=== PATIENT | female | born 1985 | race Caucasian/White ===

== ENCOUNTER → 2023-10-30 00:23 | Outpatient (CLI) | payer MEDICARE, MEDICAID, SELFPAY ==
--- NOTE | 2023-10-30 07:30 | DI.MAMMO_ITS ---
Exam(s) MG MAMMO SCREENING 60 MIN DUR EXAM: MG MAMMO SCREENING 60 MIN DUR CLINICAL HISTORY: breast cancer screening,z12.39 TECHNIQUE: Mammograms were interpreted according to the usual protocol including computer analysis w [employer] CAD system, tomosynthesis and C-view imaging. COMPARISON: None. Baseline examination. FINDINGS: The breasts are composed of heterogeneously dense fibroglandular densities, Breast Density category C . No suspicious masses or suspicious microcalcifications are seen. No skin thickening or abnormal axillary lymph nodes are seen. IMPRESSION: BI-RADS Category 1, Negative mammogram. Yearly screening mammography is recommended. Breast Density Category C, heterogeneously Dense. The mammogram demonstrates the patient's breast tissue is dense. Dense breast tissue is very common a nd is not abnormal but dense breast tissue can make it harder to find cancer on a mammogram. Also, de nse breast tissue may increase breast cancer risk. This information about the result of the mammogram report was provided to the patient to raise their awareness. Use this report when you speak with the patient about their risks for breast cancer, which includes their family history. At that time, you may recommend additional screening tests (Ultrasound or MRI) as they might be useful based on their r isk. A negative radiographic report should not delay biopsy if a dominant or clinically suspicious mass is present. Up to ten percent of cancers are not identified on mammography. A negative report may reinforce clinical impression. Adenosis and dense breasts may obscure an underlying neoplasm. False positive reports average 6 to 10%.
== END ==
PROVIDERS: PCP Nurse Practitioner Family; Visit Provider Nurse Practitioner Family
DX: Z12.31 Encounter for screening mammogram for malignant neoplasm of breast (principal)
CPT/HCPCS: 77063; 77067

== ENCOUNTER → 2023-10-30 01:36 | Outpatient (CLI) | payer MEDICARE, MEDICAID, SELFPAY ==
--- NOTE | 2023-10-30 07:30 | DI.US_ITS ---
Exam(s) US PELVIS TRANSVAGINAL EXAM: US PELVIS TRANSVAGINAL CLINICAL HISTORY: dysfunctional uterine bleeding,n93.8 TECHNIQUE: Transabdominal and transvaginal imaging was performed using standard protocol. COMPARISON: No exams were available for comparison FINDINGS: Transabdominal images are limited by lack of urinary bladder distention. UTERUS: Retroflexed 6.1 x 2.6 x 3.7 cm Endometrium: 6 mm Myometrium: Unremarkable. Cervix: Unremarkable. OVARIES: Right: Cyst or mass: None. Left: Cyst or mass: None. DOPPLER: Color: Symmetric and uniform flow to both ovaries. No hyperemia. CUL-DE-SAC: Free fluid: None. IMPRESSION: 1. Normal-appearing uterus with endometrial stripe within normal limits. 2. Unremarkable bilateral ovaries. DATA REPOSITORY:
== END ==
PROVIDERS: PCP Nurse Practitioner Family; Visit Provider Obstetrics & Gynecology
DX: N93.8 Other specified abnormal uterine and vaginal bleeding (principal)
CPT/HCPCS: 76830; 76856

== ENCOUNTER 2023-10-30 01:56 | Outpatient (CLI) | payer MEDICARE, MEDICAID, SELFPAY ==
[2023-10-30 12:32] LABS: ALT 33 U/L (14-59); AST 18 U/L (15-37); Albumin 3.9 g/dL (3.4-5.0); Alkaline Phosphatase 55 U/L (46-116); Anion Gap 6.8 mmol/L (3-11); BUN 11 mg/dL (7-18); Bilirubin, Total 0.7 mg/dL (0.2-1.0); CO2 27.2 mmol/L (21.0-32.0); CREATININE 0.6 mg/dL (0.55-1.02); Calcium 9.1 mg/dL (8.5-10.1); Calculated LDL 119 mg/dL (<100); Chloride 104 mmol/L (98-107); Cholesterol 194 mg/dL (<200); Glucose 92 mg/dL (74-106); HDL Cholesterol 70 mg/dL (40-60); Potassium 3.9 mmol/L (3.5-5.1); Sodium 138 mmol/L (136-145); Total Protein 7.5 g/dL (6.4-8.2); Triglyceride 25 mg/dL (<150)
[2023-10-30 12:42] LABS: TSH (W/Ref FT4) 0.93 uIU/mL (0.36-3.74)
[2023-10-30 18:19] LABS: FSH 11.1 mIU/mL (See Note)
== END 2023-10-30 01:57 | disposition home or self-care (01) ==
LOC: LOS 01:58
PROVIDERS: Obstetrics & Gynecology; PCP Nurse Practitioner Family; Visit Provider Nurse Practitioner Family
DX: E78.5 Hyperlipidemia, unspecified (principal); N92.0 Excessive and frequent menstruation with regular cycle; N93.8 Other specified abnormal uterine and vaginal bleeding
CPT/HCPCS: 36415; 80053; 80061; 83001; 84443

== ENCOUNTER → 2023-10-30 12:20 | Outpatient (CLI) | payer MEDICARE, MEDICAID, SELFPAY ==
--- NOTE | 2023-10-30 11:45 | DI.RAD_ITS ---
Exam(s) XR KNEE LT 3V AP,LAT,EMERSON EXAM: XR KNEE LT 3V AP,LAT,EMERSON CLINICAL HISTORY: swollen m25.562 pain left knee. TECHNIQUE: 2D digital imaging was performed. Three views. COMPARISON: No exams were available for comparison FINDINGS: BONES: No acute fracture is present. No bony destructive lesion is seen. An intramedullary lubna is seen in the tibia. JOINTS: The joint spaces are maintained. The knee is normally aligned. No joint effusion is seen. Ch ondrocalcinosis is noted. A smoothly marginated small bony density projects anterior to the tibial s pines and appears chronic. SOFT TISSUE: Normal. IMPRESSION: No acute abnormality. DATA REPOSITORY: RADIATION DOSE DELIVERED:
== END ==
PROVIDERS: PCP Nurse Practitioner Family; Visit Provider Nurse Practitioner Family
DX: M25.562 Pain in left knee (principal)
CPT/HCPCS: 73562

== ENCOUNTER 2023-11-19 16:10 | Outpatient (REF) | payer MEDICARE, MEDICAID, SELFPAY ==
--- NOTE | 2023-11-19 14:15 | PAPFT_PTH ---
PATIENT: Breana Box LOC: [facility] U#:[id number] AGE/SX: 38/F ROOM: RE11/19/[address]: Eden Fuchs MD : [id number] BED: DIS: 11/19/2023 SPEC #: [id number] RECD: 11/19/23 18:24 STATUS: MALLORY REOracio #: [id number] TRE: 11/19/23 14:[address]: Eden Fuchs DEPT: [facility] [place] Cytology RECD BY: Jeannie Dee ENTERED: 11/19/23 18:25 SP TYPE: PAPFT OT DR: Yuriy Weston DNP Tissues: 1 - CX/ENDOCX FOR PAP SMEARS Procedures: PAP THIN PREP/UVM Screening Comments: [id number]
== END 2023-11-19 16:11 | disposition home or self-care (01) ==
LOC: LBN 16:10
PROVIDERS: PCP Nurse Practitioner Family; Visit Provider Obstetrics & Gynecology
DX: Z12.4 Encounter for screening for malignant neoplasm of cervix (principal)
CPT/HCPCS: 88142

== ENCOUNTER 2023-12-01 15:51 | Outpatient (CLI) | payer MEDICARE, MEDICAID, SELFPAY ==
--- NOTE | 2023-12-01 15:20 | DI.RAD_ITS ---
Exam(s) XR TIB/FIB LT EXAM: XR TIB/FIB LT CLINICAL HISTORY: leg pain. TECHNIQUE: 2D digital imaging was performed. Two views. COMPARISON: CR XR KNEE LT 3V AP,LAT,EMERSON from 10/30/2023 FINDINGS: BONES: There is an intramedullary lubna in place in the tibia. There is no old fracture deformity of t he distal 3rd of the tibia. There is an old fracture at the distal 3rd of the tibia near the same le matthew. There is some bony bridging between the tibia and fibula at this level. No acute fracture is p resent. No bony destructive lesion is seen. Visualized portion of knee and ankle joints are unremarka ble. SOFT TISSUE: Normal. IMPRESSION: Intramedullary lubna through the tibia. Old fracture deformities of the distal 3rd of the tibia and fi bula. DATA REPOSITORY: RADIATION DOSE DELIVERED:
--- NOTE | 2023-12-01 15:20 | DI.RAD_ITS ---
Exam(s) XR TIB/FIB RT EXAM: XR TIB/FIB RT CLINICAL HISTORY: leg pain. TECHNIQUE: 2D digital imaging was performed. Two views. COMPARISON: None FINDINGS: BONES: No acute fracture is present. There is no intramedullary lubna in place in the tibia. There is mild deformity in mid tibia presumably old fracture site. Comparison with prior exams recommended. Visualized portion of knee and ankle joints are unremarkable. SOFT TISSUE: Normal. IMPRESSION: Lucency and mild deformity at the mid tibia. Intramedullary lubna in place finding may represent resid ual fracture deformity however comparison with prior exams recommended. DATA REPOSITORY: RADIATION DOSE DELIVERED:
== END 2023-12-01 15:52 | disposition home or self-care (01) ==
LOC: DIORS 15:51
PROVIDERS: PCP Nurse Practitioner Family; Visit Provider Student in an Organized Health Care Education/Training Program
DX: M79.604 Pain in right leg; M79.605 Pain in left leg; T84.84XA Pain due to internal orthopedic prosthetic devices, implants and grafts, initial encounter
CPT/HCPCS: 99203; 73590

== ENCOUNTER → 2024-01-04 01:47 | Outpatient (CLI) | payer MEDICARE, MEDICAID, SELFPAY ==
--- NOTE | 2024-01-04 13:28 | DI.RAD_ITS ---
Exam(s) XR FOOT RT COMPLETE EXAM: XR FOOT RT COMPLETE CLINICAL HISTORY: Right foot pain M79.671 PAIN RT FOOT. TECHNIQUE: 2D digital imaging was performed of the right foot. Three images were obtained. AP, obl ique and lateral views were obtained. COMPARISON: CR XR TIB/FIB RT from 12/01/2023 FINDINGS: BONES: No acute fracture is present. No bony destructive lesion is seen. The distal aspect of an intr amedullary lubna is seen in the tibia. JOINTS: No dislocation present. The joint spaces are well maintained. SOFT TISSUE: Normal. IMPRESSION: No acute abnormality. DATA REPOSITORY: RADIATION DOSE DELIVERED:
--- NOTE | 2024-01-04 13:28 | DI.RAD_ITS ---
Exam(s) XR FOOT LT COMPLETE EXAM: XR FOOT LT COMPLETE CLINICAL HISTORY: Left foot painM79.672 PAIN LEFT FOOT. TECHNIQUE: 2D digital imaging was performed of the left foot. Three images were obtained. AP, obli que and lateral views were obtained. COMPARISON: CR XR TIB/FIB LT from 12/01/2023 FINDINGS: BONES: No acute fracture is present. No bony destructive lesion is seen. The distal aspect of an intr amedullary lubna is again seen in the tibia. JOINTS: No dislocation present. Mild degenerative changes are seen at the 1st and 2nd tarsometatarsal joints. SOFT TISSUE: Normal. IMPRESSION: No acute abnormality. DATA REPOSITORY: RADIATION DOSE DELIVERED:
== END ==
PROVIDERS: PCP Nurse Practitioner Family; Visit Provider Podiatrist
DX: M79.672 Pain in left foot (principal); M79.671 Pain in right foot
CPT/HCPCS: 20550; 73630

== ENCOUNTER → 2024-01-27 13:37 | Outpatient (BNVA) | payer MEDICARE, MEDICAID, SELFPAY | PROVIDERS: PCP Nurse Practitioner Family; Referring Provider Nurse Practitioner Family; Visit Provider Podiatrist | DX: M72.2 Plantar fascial fibromatosis (principal); M79.671 Pain in right foot; M79.672 Pain in left foot; M67.01 Short Achilles tendon (acquired), right ankle; M67.02 Short Achilles tendon (acquired), left ankle | CPT/HCPCS: 99213 ==

== ENCOUNTER 2024-04-06 15:01 | Emergency (ER) | payer MEDICARE, MEDICAID, SELFPAY ==
[2024-04-06 15:03] VITALS: BP 115/80; PULSE 79; RESP 12; TEMP 36.4; O2SAT 98
--- NOTE | 2024-04-06 15:45 | DI.RAD_ITS ---
Exam(s) XR TIB/FIB LT EXAM: XR TIB/FIB LT CLINICAL HISTORY: left leg swelling pain. TECHNIQUE: 2D digital imaging was performed. COMPARISON: CR XR TIB/FIB RT from 12/01/2023 CR XR FOOT LT COMPLETE from 01/04/2024 CR XR FOOT RT COMPLETE from 01/04/2024 FINDINGS: Two views. The intramedullary lubna in the tibia seen on images of 01/04/2024 have been removed as hav e the screws in the distal tibia. There is no evidence of acute fracture of the tibia and no obvious radiographic evidence of osteomyel itis. There is a healed fracture site at the junction of the mid and distal thirds of the fibula. T here are no acute fractures evident. No remaining radiopaque hardware fragments. Incidentally noted is abnormal calcification within the infrapatellar intra-articular fat Hoffa pad o f the ipsilateral knee which is probably postsurgical IMPRESSION: Recently removed hardware. Healed fractures. No new fractures. No radiographic evidence of osteomy elitis. DATA REPOSITORY: RADIATION DOSE DELIVERED:
--- NOTE | 2024-04-06 15:45 | DI.US_ITS ---
Exam(s) US LOWER EXTREMITY VENOUS LT EXAM: US LOWER EXTREMITY VENOUS LT CLINICAL HISTORY: left leg swelling TECHNIQUE: Grayscale, color, and doppler imaging of the deep venous system of the left lower extremi ty was performed. COMPARISON: US US PELVIS TRANSVAGINAL from 10/30/2023 FINDINGS: There is no evidence of intraluminal thrombus and there is normal compression and augmentation demons trated within the common femoral vein, femoral vein, and popliteal vein. In the ipsilateral calf the interrogated veins also exhibit normal compression/ augmentation properti es. The ipsilateral saphenofemoral junction is patent. IMPRESSION: 1. No evidence of DVT in the left lower extremity. DATA REPOSITORY:
[2024-04-06 16:07] VITALS: RESP 16
[2024-04-06 18:08] VITALS: BP 128/74; PULSE 86; RESP 16; O2SAT 99
--- NOTE | 2024-04-06 18:21 | DI.VRAD_ITS ---
PROCEDURE INFORMATION: Exam: XR Left Tibia and Fibula Exam date and time: 04/06/2024 5:34 PM Age: 39 years old Clinical indication: Pain; Lower leg; Left; Prior surgery; Surgery date: 6+ months; Surgery type: 2000 FX; Additional info: Left leg swelling pain TECHNIQUE: Imaging protocol: Radiologic exam of the left tibia and fibula. Views: 2 views. COMPARISON: CR XR TIB/FIB LT 12/01/2023 3:07 PM FINDINGS: Bones/joints: Evidence of old healed diaphyseal fractures in the distal tibia and fibula and evidence of prior orthopedic hardware which has been removed. No acute fracture evident. Mild degenerative changes noted in the knee and ankle. Soft tissues: Normal. IMPRESSION: No acute abnormality. Chronic findings as noted. Dictated and Authenticated by: Evens Grayson MD. Ordering:EULOGIO Toledo MD
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
== END 2024-04-06 18:09 | disposition home or self-care (01) ==
PROVIDERS: Emergency Provider Emergency Medicine; PCP Nurse Practitioner Family
DX: M79.605 Pain in left leg (principal); R22.42 Localized swelling, mass and lump, left lower limb
CPT/HCPCS: 99284; 73590; 93971; 99283

== ENCOUNTER 2024-11-03 02:27 | Outpatient (CLI) | payer MEDICARE, MEDICAID, SELFPAY ==
[2024-11-03] MEDS: Levalbuterol HFA 15 GM INH 4 PUFF IH (14:06)
[2024-11-03] MEDS: Inhaler, Assist Device 1 EACH MC (14:06)
--- NOTE | 2024-12-01 11:10 | W.PFT ---
Date of service: 11/03/24 Time of Service: 12:49 Pulmonary Function Test Result Indications: Dyspnea on exertion Interpretation Spirometry: No airflow limitation. No significant bronchodilator response. Lung Volumes: There is air trapping Diffusion Capacity: Normal corrected diffusion Airway Pressure: Normal airways resistance Impression No airflow obstruction but air trapping is present with a normal diffusion. Clinical Correlation therefore is recommended.
== END 2024-11-03 02:28 | disposition home or self-care (01) ==
LOC: RT 02:27
PROVIDERS: PCP Nurse Practitioner Family; Visit Provider Nurse Practitioner Family
DX: R06.2 Wheezing (principal); V89.2XXA Person injured in unspecified motor-vehicle accident, traffic, initial encounter; R06.09 Other forms of dyspnea
CPT/HCPCS: 94060; 94726; 94729

== ENCOUNTER 2024-12-02 00:40 | Outpatient (CLI) | payer MEDICARE, MEDICAID, SELFPAY ==
--- NOTE | 2024-12-02 07:45 | DI.MAMMO_ITS ---
Exam(s) MG MAMMO SCREENING 60 MIN DUR EXAM: MG MAMMO SCREENING 60 MIN DUR CLINICAL HISTORY: breast cancer screening,Z12.31 TECHNIQUE: Mammograms were interpreted according to the usual protocol including computer analysis w ith CAD system, tomosynthesis and C-view imaging. COMPARISON: 2023 FINDINGS: The breasts are composed of heterogeneously dense fibroglandular densities, Breast Density category C . No suspicious masses or suspicious microcalcifications are seen. No skin thickening or abnormal axillary lymph nodes are seen. There has been no significant change from prior exams. IMPRESSION: BI-RADS Category 1, Negative mammogram. Yearly screening mammography is recommended. Breast Density Category C, heterogeneously Dense. Breast density Category C or D implies that the patient has dense breast tissue. Dense breast tissue can make it harder to find cancer on a mammogram. Dense breast tissue is also associated with an incr eased risk of breast cancer. This information about the result of the mammogram report was provided to the patient to raise their awareness. Use this report when you speak with the patient about their risks for breast cancer, which includes their family history. At that time, you may recommend additional screening tests (Ultrasoun d or MRI) as these tests may add significant information. A negative radiographic report should not delay biopsy if a dominant or clinically suspicious mass is present. Up to ten percent of cancers are not identified on mammography. A negative report may reinforce clinical impression. Adenosis and dense breasts may obscure an underlying neoplasm. False positive reports average 6 to 10%.
== END 2024-12-02 01:00 ==
LOC: DI 00:40
PROVIDERS: PCP Nurse Practitioner Family; Visit Provider Nurse Practitioner Family
DX: Z12.31 Encounter for screening mammogram for malignant neoplasm of breast (principal); R92.333 Mammographic heterogeneous density, bilateral breasts
CPT/HCPCS: 77063; 77067

== ENCOUNTER → 2025-02-08 09:07 | Outpatient (BNVA) | payer MEDICARE, MEDICAID, SELFPAY | PROVIDERS: PCP Nurse Practitioner Family; Referring Provider Nurse Practitioner Family; Visit Provider Physician Assistant Surgical | DX: S06.9XAA Unspecified intracranial injury with loss of consciousness status unknown, initial encounter (principal); V89.2XXA Person injured in unspecified motor-vehicle accident, traffic, initial encounter; R06.2 Wheezing; R13.10 Dysphagia, unspecified | CPT/HCPCS: 99215 ==

== ENCOUNTER 2025-02-21 15:47 | Outpatient (CLI) | payer MEDICARE, MEDICAID, SELFPAY ==
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
== END 2025-02-21 16:07 ==
LOC: DI 15:47
PROVIDERS: PCP Nurse Practitioner Family; Visit Provider Physician Assistant Surgical
DX: R06.2 Wheezing (principal); R13.10 Dysphagia, unspecified; S06.9XAA Unspecified intracranial injury with loss of consciousness status unknown, initial encounter; V89.2XXA Person injured in unspecified motor-vehicle accident, traffic, initial encounter; R91.8 Other nonspecific abnormal finding of lung field
CPT/HCPCS: 71250

== ENCOUNTER 2025-02-25 10:43 | Emergency (ER) | payer MEDICARE, MEDICAID, SELFPAY ==
[2025-02-25 10:46] VITALS: BP 101/73; PULSE 83; RESP 16; TEMP 37.2; O2SAT 98
[2025-02-25 10:49] VITALS: BP 101/73; PULSE 83; RESP 16; TEMP 37.2; O2SAT 98
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
== END 2025-02-25 12:06 | disposition home or self-care (01) ==
LOC: ER 11:19
PROVIDERS: Emergency Provider General Practice; PCP Nurse Practitioner Family
DX: L60.0 Ingrowing nail (principal)
CPT/HCPCS: 99283 ×2; 11765; J2004

== ENCOUNTER → 2025-02-27 11:17 | Outpatient (BNVA) | payer MEDICARE, MEDICAID, SELFPAY | PROVIDERS: PCP Nurse Practitioner Family; Referring Provider Nurse Practitioner Family; Visit Provider Podiatrist | DX: L60.0 Ingrowing nail (principal); M79.672 Pain in left foot; M79.671 Pain in right foot; M72.2 Plantar fascial fibromatosis; M67.01 Short Achilles tendon (acquired), right ankle; M67.02 Short Achilles tendon (acquired), left ankle | CPT/HCPCS: 11750; 20550; J0702; J1100 ==

== ENCOUNTER → 2025-03-09 10:41 | Outpatient (BNVA) | payer MEDICARE, MEDICAID, SELFPAY | PROVIDERS: PCP Nurse Practitioner Family; Referring Provider Nurse Practitioner Family; Visit Provider Physician Assistant Surgical | DX: S06.9XAA Unspecified intracranial injury with loss of consciousness status unknown, initial encounter (principal); R06.2 Wheezing; R13.10 Dysphagia, unspecified | CPT/HCPCS: 99214 ==

== ENCOUNTER → 2025-03-21 13:22 | Outpatient (BNVA) | payer MEDICARE, MEDICAID, SELFPAY | PROVIDERS: PCP Nurse Practitioner Family; Referring Provider Nurse Practitioner Family; Visit Provider Podiatrist | DX: M72.2 Plantar fascial fibromatosis (principal); M79.671 Pain in right foot; M79.672 Pain in left foot; L60.0 Ingrowing nail; M67.01 Short Achilles tendon (acquired), right ankle; M67.02 Short Achilles tendon (acquired), left ankle | CPT/HCPCS: 20550; J0702; J1100 ==

== ENCOUNTER 2025-04-14 04:44 | Outpatient (CLI) | payer MEDICARE, MEDICAID, SELFPAY ==
[2025-04-14 09:01] LABS: HCT 41.4 % (36.0-46.0); HGB 13.9 g/dL (11.2-15.7); MCH 30.8 pg (27.0-33.0); MCHC 33.6 % (32.0-36.0); MCV 92 fL (80-95); MPV 10.0 fL (8.0-11.0); Platelet Count 202 10^3/uL (130-400); RBC 4.51 10^6/uL (3.93-5.22); RDW 12.0 % (11.7-14.6); RDW-SD 40.3 fL; WBC 3.65 10^3/uL (4.4-10.8)
[2025-04-14 09:42] LABS: ALT 22 U/L (14-59); AST 13 U/L (15-37); Albumin 3.9 g/dL (3.4-5.0); Alkaline Phosphatase 54 U/L (46-116); Anion Gap 7.6 mmol/L (3-11); BUN 6 mg/dL (7-18); Bilirubin, Total 0.6 mg/dL (0.2-1.0); CO2 28.4 mmol/L (21.0-32.0); Calcium 9.2 mg/dL (8.5-10.1); Chloride 105 mmol/L (98-107); Estimated GFR 110.67 (mL/min/1.73m2); Glucose 80 mg/dL (74-106); Potassium 4.8 mmol/L (3.5-5.1); Sodium 141 mmol/L (136-145); TSH (W/Ref FT4) 2.09 uIU/mL (0.36-3.74); Total Protein 7.2 g/dL (6.4-8.2); Vitamin B12 600 pg/mL (193-986)
[2025-04-17 10:30] LABS: Syphilis Serology (RPR) Negative (Negative)
== END 2025-04-14 04:45 | disposition home or self-care (01) ==
LOC: LBO 04:44
PROVIDERS: PCP Nurse Practitioner Family; Visit Provider Nurse Practitioner Family
DX: R41.3 Other amnesia (principal); R63.2 Polyphagia
CPT/HCPCS: 36415; 80053; 85027; 82607; 84443; 86592

== ENCOUNTER → 2025-04-18 14:06 | Outpatient (BNVA) | payer MEDICARE, MEDICAID, SELFPAY | PROVIDERS: PCP Nurse Practitioner Family; Referring Provider Nurse Practitioner Family; Visit Provider Podiatrist | DX: M72.2 Plantar fascial fibromatosis (principal); L60.0 Ingrowing nail; M79.671 Pain in right foot; M79.672 Pain in left foot; M67.01 Short Achilles tendon (acquired), right ankle; M67.02 Short Achilles tendon (acquired), left ankle | CPT/HCPCS: 20550; J0702; J1100 ==

== ENCOUNTER → 2025-05-23 11:16 | Outpatient (BNVA) | payer MEDICARE, MEDICAID, SELFPAY | PROVIDERS: PCP Nurse Practitioner Family; Referring Provider Nurse Practitioner Family; Visit Provider Podiatrist | DX: L60.0 Ingrowing nail (principal); M79.671 Pain in right foot; M79.672 Pain in left foot; M67.01 Short Achilles tendon (acquired), right ankle; M67.02 Short Achilles tendon (acquired), left ankle; M72.2 Plantar fascial fibromatosis; M21.621 Bunionette of right foot | CPT/HCPCS: 99213 ==

== ENCOUNTER → 2025-05-25 02:28 | Outpatient (CLI) | payer MEDICARE, MEDICAID, SELFPAY ==
--- NOTE | 2025-05-25 07:30 | DI.RAD_ITS ---
Exam(s) RF MODIFIED SPEECH BA SWALLOW TECHNIQUE: Modified barium swallow was performed in conjunction with speech pathology. CONTRAST MATERIAL: Oral barium Oral water soluble contrast was administered. COMPARISON: No exams were available for comparison FINDINGS: Fluoroscopy was provided during modified barium swallow study performed our department in conjunction with the speech therapist. The radiologist was present in the fluoroscopy suite for the entire procedure Some aspiration was observed with thin barium administration. See separate speech therapist report for details. IMPRESSION: As above. RADIATION DOSE DELIVERED: ángela Cotter=5.05 mGy
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
[2025-05-25] MEDS: Barium Sulfate 40% W/V 240 ML BTL 40 ML PO (11:13)
[2025-05-25] MEDS: Barium Sulfate Oral Paste 40% W/V 230 ML TUBE 40 ML PO (11:14)
[2025-05-25] MEDS: Barium Sulfate 81% w/w for Oral Suspension 148 GM BTL 50 GM PO (11:14)
== END ==
LOC: DI 02:28
PROVIDERS: PCP Nurse Practitioner Family; Visit Provider Physician Assistant Surgical
DX: R13.13 Dysphagia, pharyngeal phase (principal); S06.9XAA Unspecified intracranial injury with loss of consciousness status unknown, initial encounter; X58.XXXA Exposure to other specified factors, initial encounter
CPT/HCPCS: 92526; 74221

== ENCOUNTER → 2025-06-07 10:21 | Outpatient (BNVA) | payer MEDICARE, MEDICAID, SELFPAY | PROVIDERS: PCP Nurse Practitioner Family; Referring Provider Nurse Practitioner Family; Visit Provider Internal Medicine Pulmonary Disease | DX: R06.00 Dyspnea, unspecified (principal); R91.1 Solitary pulmonary nodule; Z87.09 Personal history of other diseases of the respiratory system; Z23 Encounter for immunization | CPT/HCPCS: 99214; 90471; 90684 ==